=== PATIENT | female | born 1985 | race Caucasian/White ===

== ENCOUNTER 2018-05-04 10:56 | Emergency (ER) | payer OTHER ==
[~2018-05-04] VITALS: Ht 167.6 cm; Wt 83.0 kg
[2018-05-04 11:04] VITALS: BP 122/89
--- NOTE | 2018-05-04 11:10 | NUR ---
PT AMBULATES TO BED 10
--- NOTE | 2018-05-04 11:15 | NUR ---
BIB SELF C/O AB PAIN X 2 DAYS, +N/V/D, AFRIBILE AT THIS TIME. SKIN IS PINK/WARM/DRY; AAOX4 WITH EVEN AND STEADY GAIT; LUNGS CLEAR BL; HR EVEN AND REGULAR; PT DENIES ANY FEVER, CP, SOB, OR COUGH AT THIS TIME; PATIENT STATES PAIN OF 6/10 AT THIS TIME; VSS; PATIENT POSITIONED FOR COMFORT; HOB ELEVATED; BEDRAILS UP X2; BED DOWN. ER MD MADE AWARE OF PT STATUS.
[2018-05-04] MEDS ORDERED: LOPERAMIDE 2 MG CAP PO ONE (11:30)
[2018-05-04] MEDS ORDERED: ONDANSETRON 4 MG ODT PO ONE (11:30)
[2018-05-04] MEDS ORDERED: IBUPROFEN 600 MG TAB PO ONE (11:30)
[2018-05-04 11:47] VITALS: BP 122/89
--- NOTE | 2018-05-04 11:48 | NUR ---
Patient discharged with v/s stable. Written and verbal after care instructions given and explained. Patient alert, oriented and verbalized understanding of instructions. Ambulatory with steady gait. All questions addressed prior to discharge. ID band removed. Patient advised to follow up with PMD. Rx of Bentyl, immodium, phenergan given. Patient educated on indication of medication including possible reaction and side effects. Opportunity to ask questions provided and answered.
== END 2018-05-04 11:45 | disposition home or self-care (01) ==
LOC: MED 10:56
DX: A08.4 Viral intestinal infection, unspecified (principal); Z88.0 Allergy status to penicillin; Z88.8 Allergy status to other drugs, medicaments and biological substances
CPT/HCPCS: 99284; Q0162

== ENCOUNTER 2019-01-12 10:03 | Emergency (ER) | payer OTHER ==
[~2019-01-12] VITALS: Ht 165.1 cm; Wt 85.5 kg
[2019-01-12 10:08] VITALS: BP 120/65
--- NOTE | 2019-01-12 10:12 | NUR ---
Patient ambulated to bed 1. RN evaluating patient at bedside.
--- NOTE | 2019-01-12 10:30 | NUR ---
PT PRESENTS TO ED WITH C/O DIZZINESS X TODAY. PT REPORTS FEELING IF SHE'S "SPINNING". +NAUSEA, DENIES VOMITING EPISODES. DENIES ANY RECENT ILLNESS. PLACED IN GOWN; CONNECTED TO MONITOR. VSS. COY TO EVALUATE PT.
[2019-01-12] MEDS ORDERED: NACL 0.9% 1,000 ML IV SCH (11:06)
[2019-01-12] MEDS ORDERED: MECLIZINE 25 MG TAB PO ONE (11:10)
[2019-01-12] MEDS ORDERED: ONDANSETRON 4 MG ODT PO ONE (11:10)
[2019-01-12] MEDS ORDERED: FAMOTIDINE 20 MG TAB PO ONE (11:10)
[2019-01-12 11:35] LABS: BASOPHILS % (AUTO) 0.6 % (0.0-2.0); EOSINOPHILS # (AUTO) 0.2 K/uL (0-0.4); EOSINOPHILS % (AUTO) 3.4 % (0.0-4.0); HEMOGLOBIN 9.1 g/dL (12.0-16.0); LYMPHOCYTES # (AUTO) 2.4 K/uL (2.5-16.5); LYMPHOCYTES % (AUTO) 34.5 % (20.5-51.1); MEAN CORPUSCULAR HEMOGLOBIN 19 pg (27-31); MEAN CORPUSCULAR HGB CONC 30 g/dL (33-37); MEAN CORPUSCULAR VOLUME 63.4 fL (80-94); MONOCYTES # (AUTO) 0.6 K/uL (0.8-1.0); MONOCYTES % (AUTO) 8.2 % (1.7-9.3); NEUTROPHILS # (AUTO) 3.7 K/uL (1.8-7.7); NEUTROPHILS % (AUTO) 53.3 % (42.2-75.2); PLATELET COUNT (AUTO) 388 K/uL (140-450); RED BLOOD CELL COUNT(AUTO) 4.74 MIL/uL (4.20-5.40); RED CELL DISTRIBUTION WIDTH 18.5 % (11.6-13.7); WHITE BLOOD COUNT (AUTO) 6.9 K/uL (4.8-10.8)
[2019-01-12 11:50] LABS: ALBUMIN 3.3 g/dL (3.4-5.0); ANION GAP 12.5 (8-16); CARBON DIOXIDE 26.3 mmol/L (21-32); CREATININE 0.7 mg/dL (0.6-1.3); POTASSIUM 3.8 mmol/L (3.5-5.1); TOTAL BILIRUBIN 0.2 mg/dL (0.0-1.0)
[2019-01-12 12:56] LABS: APPEARANCE,URINE SL CLOUDY (CLEAR); BILIRUBIN,URINE NEGATIVE (NEGATIVE); BLOOD, URINE NEGATIVE (NEGATIVE); LEUKOCYTE ESTERASE ,URINE 3+ (NEGATIVE); NITRITE, URINE NEGATIVE (NEGATIVE); PH,URINE 5.5 (5.0-9.0); UGLUCOSE NEGATIVE (NEGATIVE)
[2019-01-12] MEDS ORDERED: LEVOFLOXACIN 500 MG TAB PO ONE (13:10)
[2019-01-12 13:38] LABS: RBC,URINE NONE SEEN /HPF (0-5)
[2019-01-12 13:40] LABS: COLOR,URINE YELLOW (YELLOW)
--- NOTE | 2019-01-12 13:51 | NUR ---
Patient discharged with v/s stable. Written and verbal after care instructions given and explained. Patient alert, oriented and verbalized understanding of instructions. Ambulatory with steady gait. All questions addressed prior to discharge. ID band removed. Patient advised to follow up with PMD. Rx of ANTIVERT 25MG AND LEVAQUIN 250MG given. Patient educated on indication of medication including possible reaction and side effects. Opportunity to ask questions provided and answered.
[2019-01-12 13:52] VITALS: BP 119/82
== END 2019-01-12 13:51 | disposition home or self-care (01) ==
LOC: MED 10:03
DX: N39.0 Urinary tract infection, site not specified (principal); Z88.0 Allergy status to penicillin; Z88.8 Allergy status to other drugs, medicaments and biological substances
CPT/HCPCS: 36415; 80053; 81001; 82150; 83690; 84703; 85025; 86886; 86900; 86901; 87086; 96360; 96361; 99284; J7030; J8597; Q0162

== ENCOUNTER 2019-03-16 08:18 | Emergency (ER) | payer OTHER ==
[~2019-03-16] VITALS: Ht 167.6 cm; Wt 81.6 kg
[2019-03-16 08:24] VITALS: BP 100/76
[2019-03-16 09:13] VITALS: BP 100/76
== END 2019-03-16 09:12 | disposition home or self-care (01) ==
LOC: MED 08:18
DX: S50.861A Insect bite (nonvenomous) of right forearm, initial encounter (principal); S50.361A Insect bite (nonvenomous) of right elbow, initial encounter; R21 Rash and other nonspecific skin eruption; L29.9 Pruritus, unspecified; Z88.0 Allergy status to penicillin; Z88.8 Allergy status to other drugs, medicaments and biological substances; W57.XXXA Bitten or stung by nonvenomous insect and other nonvenomous arthropods, initial encounter; Y93.89 Activity, other specified; Y92.89 Other specified places as the place of occurrence of the external cause; Y99.8 Other external cause status
CPT/HCPCS: 99283

== ENCOUNTER 2019-03-16 21:58 | Emergency (ER) | payer OTHER ==
[~2019-03-16] VITALS: Ht 165.1 cm; Wt 88.5 kg
[2019-03-16 22:12] VITALS: BP 119/76
--- NOTE | 2019-03-16 22:32 | NUR ---
PT AMBULATED TO BED #6
--- NOTE | 2019-03-16 22:38 | NUR ---
PT CAME TO ER FOR BUG BITE ON RIGHT FOREARM SINCE TODAY. PT WAS SEEN HERE 03/16/19 AROUND 0830 FOR BUG BITE AND WAS PRESCRIBED ANTIBIOTICS AND BENADRYL. PT C/O MEDICATIONS DID NOT WORK AND DEVELOPED A FEVER. PT TOOK TYLENOL AT 1700 AND MOTRIN AT 2000 FOR FEVER. PT CURRENTLY AFEBRILE. PAIN LEVEL 7/10, SHOOTING FROM RIGHT FINGERS TO RIGHT SHOULDER BLADE. AREA HAS REDNESS AND SWELLING. ALLERGIES: PENICILLIN AND IODINE. NO MED HX. SAFETY MEASURES IN PLACE. WAITING FOR ERMD TO EVALUATE PT.
[2019-03-17] MEDS ORDERED: KETOROLAC 30 MG/ML VIAL IM ONE (00:05)
[2019-03-17 00:44] VITALS: BP 136/59
--- NOTE | 2019-03-17 00:44 | NUR ---
Patient discharged with v/s stable. Written and verbal after care instructions given and explained. Educated pt to wash skin with soap and water, avoid scratching area. Patient alert, oriented and verbalized understanding of instructions. Ambulatory with steady gait. All questions addressed prior to discharge. ID band removed. Patient advised to follow up with PMD. Rx of nAPROSYN, AND hYDROCORTISONE CREAM was given. Patient educated on indication of medication including possible reaction and side effects. Opportunity to ask questions provided and answered.
== END 2019-03-17 00:44 | disposition home or self-care (01) ==
LOC: MED 21:58
DX: T63.301A Toxic effect of unspecified spider venom, accidental (unintentional), initial encounter (principal); M79.631 Pain in right forearm; L08.9 Local infection of the skin and subcutaneous tissue, unspecified; Z88.0 Allergy status to penicillin; Z88.8 Allergy status to other drugs, medicaments and biological substances; Y92.89 Other specified places as the place of occurrence of the external cause
CPT/HCPCS: 96372; 99283; J1885

== ENCOUNTER 2019-08-11 22:33 | Emergency (ER) | payer OTHER ==
[~2019-08-11] VITALS: Ht 165.1 cm; Wt 88.0 kg
[2019-08-11 22:40] VITALS: BP 142/87
--- NOTE | 2019-08-11 22:51 | NUR ---
FLU SWAB COLLECTED. PT AMBULATED TO LOBBY TO A/W BED
--- NOTE | 2019-08-11 23:27 | NUR ---
PT AMBULATED TO BED 12
--- NOTE | 2019-08-11 23:35 | NUR ---
PT C/O DIZZY, BODY ACHE X EARLIER TODAY. PT SAYS SHES ALSO NAUSEATED, BLURRY VISION, UNSTEADY GAIT. VSS. TOOK IBUPROFEN AT 2214 TODAY. LUNG SOUNDS CLEAR ALL THROUGHOUT. A & OX4. CHANGE OF APPETTITE. ALLERGIES: IODINE, PENICILLIN. PMH: VERTIGO
--- NOTE | 2019-08-11 23:37 | NUR ---
COY WEI AT BEDSIDE TO EVAL PT.
--- NOTE | 2019-08-11 23:37 | NUR ---
Dr. Sharp examining patient.
[2019-08-12 00:21] VITALS: BP 142/87
== END 2019-08-12 00:21 | disposition home or self-care (01) ==
LOC: MED 22:33
DX: R50.9 Fever, unspecified (principal); R42 Dizziness and giddiness; H92.03 Otalgia, bilateral; R63.0 Anorexia; Z98.890 Other specified postprocedural states; Z88.0 Allergy status to penicillin; Z88.8 Allergy status to other drugs, medicaments and biological substances
CPT/HCPCS: 87804; 99283

== ENCOUNTER 2019-10-29 21:26 | Emergency (ER) | payer OTHER ==
[~2019-10-29] VITALS: Ht 167.6 cm; Wt 81.6 kg
[2019-10-29 21:34] VITALS: BP 132/79
[2019-10-29] MEDS ORDERED: NACL 0.9% 1,000 ML IV ONE (22:07)
[2019-10-29] MEDS ORDERED: MORPHINE SULFATE 4 MG/ML SYR IVP ONE (22:10)
[2019-10-29] MEDS ORDERED: KETOROLAC 30 MG/ML VIAL IVP ONE (22:10)
[2019-10-29] MEDS ORDERED: ONDANSETRON 4 MG/2 ML VIAL IVP ONE (22:10)
[2019-10-29 22:39] LABS: BASOPHILS # (AUTO) 0.1 K/uL (0.00-0.22); BASOPHILS % (AUTO) 0.6 % (0.0-2.0); EOSINOPHILS # (AUTO) 0.4 K/uL (0-0.4); EOSINOPHILS % (AUTO) 3.7 % (0.0-4.0); HEMATOCRIT 34.5 % (36-48); HEMOGLOBIN 10.8 g/dL (12.0-16.0); LYMPHOCYTES # (AUTO) 3.2 K/uL (2.5-16.5); LYMPHOCYTES % (AUTO) 32.7 % (20.5-51.1); MEAN CORPUSCULAR HEMOGLOBIN 22 pg (27-31); MEAN CORPUSCULAR HGB CONC 31 g/dL (33-37); MEAN CORPUSCULAR VOLUME 69.1 fL (80-94); MONOCYTES # (AUTO) 0.6 K/uL (0.8-1.0); MONOCYTES % (AUTO) 6.5 % (1.7-9.3); NEUTROPHILS # (AUTO) 5.6 K/uL (1.8-7.7); NEUTROPHILS % (AUTO) 56.5 % (42.2-75.2); PLATELET COUNT (AUTO) 340 K/uL (140-450); RED BLOOD CELL COUNT(AUTO) 4.99 MIL/uL (4.20-5.40); RED CELL DISTRIBUTION WIDTH 19.8 % (11.6-13.7); WHITE BLOOD COUNT (AUTO) 9.9 K/uL (4.8-10.8)
[2019-10-29 22:50] LABS: APPEARANCE,URINE CLEAR (CLEAR); BILIRUBIN,URINE NEGATIVE (NEGATIVE); BLOOD, URINE NEGATIVE (NEGATIVE); COLOR,URINE YELLOW (YELLOW); LEUKOCYTE ESTERASE ,URINE TRACE (NEGATIVE); NITRITE, URINE NEGATIVE (NEGATIVE); UGLUCOSE NEGATIVE (NEGATIVE)
[2019-10-29 23:03] LABS: RBC,URINE 0-5 /HPF (0-5)
[2019-10-29 23:04] LABS: ALBUMIN 3.4 g/dL (3.4-5.0); ANION GAP 10.9 (8-16); CARBON DIOXIDE 27.8 mmol/L (21-32); CREATININE 0.8 mg/dL (0.6-1.3); POTASSIUM 3.7 mmol/L (3.5-5.1); TOTAL BILIRUBIN 0.1 mg/dL (0.0-1.0)
[2019-10-29 23:10] LABS: BARBITURATE, URINE NEGATIVE ng/ml (NEG <=200); BENZODIAZEPINE, URINE NEGATIVE ng/mL (NEG <=200); CANNABINOID, URINE NEGATIVE ng/mL (NEG <=50); COCAINE, URINE NEGATIVE ng/mL (NEG <=300); OPIATE, URINE NEGATIVE ng/mL (NEG <=2000); PHENCYCLIDINE SCREEN,URINE NEGATIVE ng/mL (NEG <=25)
[2019-10-30 02:03] VITALS: BP 121/72
== END 2019-10-30 02:04 | disposition home or self-care (01) ==
LOC: MED 21:26
DX: N39.0 Urinary tract infection, site not specified (principal); N20.0 Calculus of kidney; Z88.0 Allergy status to penicillin; Z88.8 Allergy status to other drugs, medicaments and biological substances
CPT/HCPCS: 36415; 74176; 76856; 80053; 80305; 81001; 81025; 83690; 85025; 87086; 93976; 96361; 96374; 96375; 99285; J1885; J2270; J2405; J7030; Q0092

== ENCOUNTER 2020-01-19 17:50 | Emergency (ER) | payer OTHER ==
[~2020-01-19] VITALS: Ht 165.1 cm; Wt 83.0 kg
[2020-01-19 17:57] VITALS: BP 114/79
--- NOTE | 2020-01-19 18:02 | NUR ---
WAIT AT LOBBY. HANDED ON URINE CUP.
--- NOTE | 2020-01-19 18:55 | NUR ---
PT TAKEN TO BED 2.
[2020-01-19 19:21] LABS: BASOPHILS % (AUTO) 0.4 % (0.0-2.0); EOSINOPHILS # (AUTO) 0.3 K/uL (0-0.4); EOSINOPHILS % (AUTO) 3.8 % (0.0-4.0); HEMATOCRIT 36.2 % (36-48); HEMOGLOBIN 11.1 g/dL (12.0-16.0); LYMPHOCYTES # (AUTO) 2.1 K/uL (2.5-16.5); LYMPHOCYTES % (AUTO) 25.2 % (20.5-51.1); MEAN CORPUSCULAR HEMOGLOBIN 23 pg (27-31); MEAN CORPUSCULAR HGB CONC 31 g/dL (33-37); MEAN CORPUSCULAR VOLUME 73.6 fL (80-94); MONOCYTES # (AUTO) 0.6 K/uL (0.8-1.0); MONOCYTES % (AUTO) 7.7 % (1.7-9.3); NEUTROPHILS # (AUTO) 5.2 K/uL (1.8-7.7); NEUTROPHILS % (AUTO) 62.9 % (42.2-75.2); PLATELET COUNT (AUTO) 327 K/uL (140-450); RED BLOOD CELL COUNT(AUTO) 4.92 MIL/uL (4.20-5.40); RED CELL DISTRIBUTION WIDTH 18.3 % (11.6-13.7); WHITE BLOOD COUNT (AUTO) 8.2 K/uL (4.8-10.8)
[2020-01-19 19:42] LABS: PROTHROMBIN TIME 9.7 secs (10.8-13.4)
--- NOTE | 2020-01-19 19:45 | NUR ---
PT STARTED HAVING VAGINAL SPOTTING X 2 DAYS, STATES SMALL AMOUNT, ALSO HAVING WATERY DISCHARGE WITH AN UNPLEASANT ODOR. ALSO HAVING BURNING WITH URINATION. HAVING CONSTANT LOWER ABD PAIN 01/05 AND PAIUN RADIATES INTO LOWER BACK. LMP 12/31/19 DENIES . PT WAS UNABLE TO GIVE UA, PROVIDED PT WITH WATER ADVISED WE NEED UA. BED IN LOWEST POSITION AND SIDE RAIL UP X 1. ALLERGY - PCN NO MED HX MEDS - BC PILLS
--- NOTE | 2020-01-19 19:46 | NUR ---
PELVIC TRAY SRT UP AT BEDSIDE
[2020-01-19 20:10] LABS: ANION GAP 13.9 (8-16); CARBON DIOXIDE 25.6 mmol/L (21-32); CREATININE 0.8 mg/dL (0.6-1.3); POTASSIUM 4.5 mmol/L (3.5-5.1)
[2020-01-19 20:11] LABS: ALBUMIN 3.3 g/dL (3.4-5.0); TOTAL BILIRUBIN 0.1 mg/dL (0.0-1.0)
--- NOTE | 2020-01-19 20:13 | NUR ---
ASSISTED DR. TONY WITH A PELVIC EXAM.
--- NOTE | 2020-01-19 20:13 | NUR ---
UA OBTAINED AND SENT OVER TO LAB.
[2020-01-19] MEDS ORDERED: IBUPROFEN 800 MG TAB PO ONE (20:15)
--- NOTE | 2020-01-19 20:42 | NUR ---
PT TO CT VIA [facility]
[2020-01-19 20:43] LABS: APPEARANCE,URINE CLEAR (CLEAR); BILIRUBIN,URINE NEGATIVE (NEGATIVE); BLOOD, URINE NEGATIVE (NEGATIVE); COLOR,URINE YELLOW (YELLOW); LEUKOCYTE ESTERASE ,URINE 1+ (NEGATIVE); NITRITE, URINE NEGATIVE (NEGATIVE); UGLUCOSE NEGATIVE (NEGATIVE)
[2020-01-19 20:51] LABS: RBC,URINE 0-5 /HPF (0-5); WBC,URINE 16-25 (MOD) /HPF (0-5)
--- NOTE | 2020-01-19 21:28 | NUR ---
PT STATES PAIN IS NOW 4/10 AFTER MED. RESTING QUIETLY AT THIS TIME.
[2020-01-19] MEDS ORDERED: CIPROFLOXACIN 250 MG TAB PO ONE (22:40)
--- NOTE | 2020-01-19 23:15 | NUR ---
MD TONY IN PT ROOM
[2020-01-19] MEDS ORDERED: HYDROcodone/APAP 5/325 MG 1 TAB TAB ONE (23:32)
[2020-01-19] MEDS ORDERED: HYDROcodone/APAP 5/325 MG 1 TAB TAB PO ONE (23:35)
--- NOTE | 2020-01-19 23:44 | NUR ---
Patient discharged with v/s stable. Written and verbal after care instructions given and explained. Patient alert, oriented and verbalized understanding of instructions. Ambulatory with steady gait. All questions addressed prior to discharge. ID band removed. Patient advised to follow up with PMD. Rx of TRAMADOL, MOTRIN, AND CIPRO given. Patient educated on indication of medication including possible reaction and side effects. Opportunity to ask questions provided and answered.
[2020-01-19 23:45] VITALS: BP 116/78
[2020-01-22 08:12] LABS: CHLAMYDIA TRACHOMATIS AMP DNA Negative (Negative)
== END 2020-01-19 23:44 | disposition home or self-care (01) ==
LOC: MED 17:50
DX: N39.0 Urinary tract infection, site not specified (principal); D25.9 Leiomyoma of uterus, unspecified; N88.8 Other specified noninflammatory disorders of cervix uteri; Z88.0 Allergy status to penicillin; Z88.8 Allergy status to other drugs, medicaments and biological substances
CPT/HCPCS: 36415; 74176; 76856; 80053; 81001; 84702; 85025; 85610; 85730; 87086; 87210; 87491; 99285; Q0092

== ENCOUNTER 2020-05-05 13:43 | Emergency (ER) | payer OTHER ==
[~2020-05-05] VITALS: Ht 165.1 cm; Wt 80.8 kg
[2020-05-05 13:47] VITALS: BP 117/67
--- NOTE | 2020-05-05 13:50 | NUR ---
Pt taken to bed 2.
--- NOTE | 2020-05-05 13:59 | NUR ---
PT HELPED INTO HOSPITAL GOWN AND AMBULATED TO RESTROOM TO PROVIDE URINE SAMPLE
--- NOTE | 2020-05-05 14:00 | NUR ---
34/F C/O N/V/D & GENERALIZED ABDOMINAL PAIN X 2 DAYS. PT FINISHED LAST CHEMO & EXTERNAL RADIATION 4 DAYS AGO AND BRACHYTHERAPY 2 DAYS AGO. HAS HAD CHEMO BEFORE BUT STATES THE BRACHYTHERAPY 2 DAYS AGO IS HER FIRST TIME. PT STATES N/V STARTED FIRST AND BELIEVES THAT IS WHAT CAUSED THE ABD PAIN. PT CONNECTED TO BEDSIDE MONITOR. MED HX: CERVICAL CANCER STAGE II Addendum: 05/05/20 at 1412 by SHUBHAM HAS PRESCRIPTIONS FOR ZOFRAN AND COMPAZINE WHICH PT IS TAKING AT HOME TO NO RELIEF FOR N/V Addendum: 05/05/20 at 1443 by SHUBHAM N/V X 2 DAYS, DIARRHEA X TODAY
--- NOTE | 2020-05-05 14:12 | NUR ---
DR. GROVES EVALUATING PT AT BEDSIDE
[2020-05-05] MEDS ORDERED: METOCLOPRAMIDE 10 MG/2 ML INJ VIAL IVP ONE (14:15)
[2020-05-05] MEDS ORDERED: diphenhydrAMINE 50 MG/ML VIAL IVP ONE (14:15)
[2020-05-05] MEDS ORDERED: NACL 0.9% 1,000 ML IV ONE (14:15)
[2020-05-05 14:43] LABS: BASOPHILS % (AUTO) 0.5 % (0.0-2.0); EOSINOPHILS % (AUTO) 1.3 % (0.0-4.0); HEMATOCRIT 37.7 % (36-48); HEMOGLOBIN 12.7 g/dL (12.0-16.0); LYMPHOCYTES # (AUTO) 0.4 K/uL (2.5-16.5); LYMPHOCYTES % (AUTO) 12.3 % (20.5-51.1); MEAN CORPUSCULAR HEMOGLOBIN 28 pg (27-31); MEAN CORPUSCULAR HGB CONC 34 g/dL (33-37); MONOCYTES # (AUTO) 0.4 K/uL (0.8-1.0); MONOCYTES % (AUTO) 15.7 % (1.7-9.3); NEUTROPHILS % (AUTO) 70.2 % (42.2-75.2); PLATELET COUNT (AUTO) 281 K/uL (140-450); RED BLOOD CELL COUNT(AUTO) 4.59 MIL/uL (4.20-5.40); RED CELL DISTRIBUTION WIDTH 33.1 % (11.6-13.7); WHITE BLOOD COUNT (AUTO) 2.8 K/uL (4.8-10.8)
[2020-05-05 14:44] LABS: APPEARANCE,URINE CLEAR (CLEAR); BILIRUBIN,URINE NEGATIVE (NEGATIVE); BLOOD, URINE 1+ (NEGATIVE); COLOR,URINE YELLOW (YELLOW); LEUKOCYTE ESTERASE ,URINE TRACE (NEGATIVE); NITRITE, URINE NEGATIVE (NEGATIVE); UGLUCOSE NEGATIVE (NEGATIVE)
[2020-05-05 14:59] LABS: RBC,URINE 11-20 (MOD) /HPF (0-5)
[2020-05-05 15:01] LABS: ALBUMIN 3.5 g/dL (3.4-5.0); ANION GAP 14.8 (8-16); CARBON DIOXIDE 25.6 mmol/L (21-32); CREATININE 0.7 mg/dL (0.6-1.3); POTASSIUM 3.4 mmol/L (3.5-5.1); TOTAL BILIRUBIN 0.3 mg/dL (0.0-1.0)
--- NOTE | 2020-05-05 15:34 | NUR ---
PT STATES SHE FEELS "BETTER"; DENIES NAUSEA AT THIS TIME.
--- NOTE | 2020-05-05 15:41 | NUR ---
DR. GROVES SPEAKING WITH PT AT BEDSIDE
[2020-05-05 16:10] VITALS: BP 120/80
--- NOTE | 2020-05-05 16:10 | NUR ---
Patient discharged with v/s stable. Written and verbal after care instructions given and explained. Patient alert, oriented and verbalized understanding of instructions. Ambulatory with steady gait. WILL BE PICKED UP FROM ER BY SISTER. All questions addressed prior to discharge. ID band removed. Patient advised to follow up with PMD. Rx of REGLAN given. Patient educated on indication of medication including possible reaction and side effects. Opportunity to ask questions provided and answered.
== END 2020-05-05 16:10 | disposition home or self-care (01) ==
LOC: MED 13:43
DX: R11.2 Nausea with vomiting, unspecified (principal); Z88.0 Allergy status to penicillin; Z88.8 Allergy status to other drugs, medicaments and biological substances; Z85.9 Personal history of malignant neoplasm, unspecified; Z85.41 Personal history of malignant neoplasm of cervix uteri
CPT/HCPCS: 36415; 80053; 81001; 81025; 83690; 85025; 87086; 96361; 96374; 96375; 99284; J1200; J2765; J7030

== ENCOUNTER 2020-07-05 13:52 | Emergency (ER) | payer OTHER ==
[~2020-07-05] VITALS: Ht 172.7 cm; Wt 85.7 kg
[2020-07-05 14:27] VITALS: BP 137/65
--- NOTE | 2020-07-05 15:00 | NUR ---
PT SEEN AND EVALUATED BY MARIELY MCGILL
[2020-07-05 15:19] VITALS: BP 137/65
--- NOTE | 2020-07-05 15:19 | NUR ---
Patient discharged with v/s stable. Written and verbal after care instructions given and explained. Patient alert, oriented and verbalized understanding of instructions. Ambulatory with steady gait. All questions addressed prior to discharge. ID band removed. Patient advised to follow up with PMD. Rx of ROBITUSSIN, IBUPROFEN, ACETAMINOPHEN given. Patient educated on indication of medication including possible reaction and side effects. Opportunity to ask questions provided and answered.
== END 2020-07-05 15:19 | disposition home or self-care (01) ==
LOC: MED 13:52
DX: U07.1 COVID-19 (principal); Z88.0 Allergy status to penicillin; Z88.8 Allergy status to other drugs, medicaments and biological substances; Z85.41 Personal history of malignant neoplasm of cervix uteri
CPT/HCPCS: 99283; U0003

== ENCOUNTER 2020-07-08 19:56 | Emergency (ER) | payer OTHER ==
[~2020-07-08] VITALS: Ht 165.1 cm; Wt 82.6 kg
[2020-07-08 20:00] VITALS: BP 108/90
--- NOTE | 2020-07-08 20:00 | NUR ---
TO TENT AMBULATORY
--- NOTE | 2020-07-08 20:30 | NUR ---
SEEN AND EXAMINED BY COY WITH ORDERS, CARRIED OUT
[2020-07-08] MEDS ORDERED: ACETAMINOPHEN EXTRA STRENGTH 500 MG TAB PO ONE (20:35)
[2020-07-08] MEDS ORDERED: ALBUTEROL HFA MDI 90 MCG/ACTUATION 8 GM INH ONE (20:35)
[2020-07-08] MEDS ORDERED: IBUPROFEN 800 MG TAB PO ONE (20:35)
[2020-07-08] MEDS ORDERED: levoFLOXacin 750 MG TAB PO ONE (20:35)
[2020-07-08 21:39] LABS: BASOPHILS % (AUTO) 0.4 % (0.0-2.0); EOSINOPHILS % (AUTO) 0.4 % (0.0-4.0); HEMATOCRIT 39.6 % (36-48); HEMOGLOBIN 13.2 g/dL (12.0-16.0); LYMPHOCYTES # (AUTO) 0.6 K/uL (2.5-16.5); LYMPHOCYTES % (AUTO) 22.1 % (20.5-51.1); MEAN CORPUSCULAR HEMOGLOBIN 30 pg (27-31); MEAN CORPUSCULAR HGB CONC 34 g/dL (33-37); MEAN CORPUSCULAR VOLUME 89.8 fL (80-94); MONOCYTES # (AUTO) 0.4 K/uL (0.8-1.0); MONOCYTES % (AUTO) 16.1 % (1.7-9.3); NEUTROPHILS # (AUTO) 1.7 K/uL (1.8-7.7); PLATELET COUNT (AUTO) 194 K/uL (140-450); RED BLOOD CELL COUNT(AUTO) 4.41 MIL/uL (4.20-5.40); RED CELL DISTRIBUTION WIDTH 24.1 % (11.6-13.7); WHITE BLOOD COUNT (AUTO) 2.7 K/uL (4.8-10.8)
[2020-07-08 22:02] LABS: ALBUMIN 3.9 g/dL (3.4-5.0); ANION GAP 13.4 (8-16); CARBON DIOXIDE 25.3 mmol/L (21-32); CREATININE 0.7 mg/dL (0.6-1.3); POTASSIUM 3.7 mmol/L (3.5-5.1); TOTAL BILIRUBIN 0.3 mg/dL (0.0-1.0)
[2020-07-08] MEDS ORDERED: levoFLOXacin 750 MG TAB ONE (22:14)
[2020-07-08] MEDS ORDERED: IBUPROFEN 800 MG TAB ONE (22:15)
[2020-07-08] MEDS ORDERED: ACETAMINOPHEN EXTRA STRENGTH 500 MG TAB ONE (22:16)
--- NOTE | 2020-07-08 22:20 | NUR ---
SWAB DONE SENT TO LAB
--- NOTE | 2020-07-08 22:25 | NUR ---
MEDICATED PER ERMDS ORDER, TOLERATED WELL
[2020-07-08 22:45] VITALS: BP 115/79
--- NOTE | 2020-07-08 22:45 | NUR ---
Patient discharged with v/s stable. Written and verbal after care instructions given and explained. Patient alert, oriented and verbalized understanding of instructions. Ambulatory with steady gait. All questions addressed prior to discharge. ID band removed. Patient advised to follow up with PMD. Rx of VENTOLIN, LEVAQUIN 750 MG given. Patient educated on indication of medication including possible reaction and side effects. Opportunity to ask questions provided and answered.
== END 2020-07-08 22:45 | disposition home or self-care (01) ==
LOC: MED 19:56
DX: U07.1 COVID-19 (principal); Z85.41 Personal history of malignant neoplasm of cervix uteri; Z88.0 Allergy status to penicillin; Z88.8 Allergy status to other drugs, medicaments and biological substances
CPT/HCPCS: 36415; 71045; 80053; 83605; 85025; 85379; 87040; 87804; 99284; J3535

== ENCOUNTER 2021-01-02 02:25 | Emergency (ER) | payer OTHER ==
[~2021-01-02] VITALS: Ht 165.1 cm; Wt 88.5 kg
[2021-01-02 02:47] VITALS: BP 126/83
[2021-01-02] MEDS ORDERED: ONDANSETRON 4 MG ODT PO ONE (03:40)
[2021-01-02] MEDS ORDERED: PANTOPRAZOLE 40 MG TABEC PO ONE (03:45)
[2021-01-02] MEDS ORDERED: PROCHLORPERAZINE 10 MG/2 ML VIAL IM ONE (04:00)
[2021-01-02 05:00] VITALS: BP 126/83
[2021-01-02 05:43] LABS: BILIRUBIN,URINE NEGATIVE (NEGATIVE); BLOOD, URINE NEGATIVE (NEGATIVE); COLOR,URINE YELLOW (YELLOW); LEUKOCYTE ESTERASE ,URINE 1+ (NEGATIVE); NITRITE, URINE NEGATIVE (NEGATIVE); PH,URINE 8.5 (5.0-9.0); UGLUCOSE NEGATIVE (NEGATIVE)
[2021-01-02 05:56] LABS: RBC,URINE 0-5 /HPF (0-5)
[2021-01-02 06:00] LABS: APPEARANCE,URINE HAZY (CLEAR)
== END 2021-01-02 05:00 | disposition home or self-care (01) ==
LOC: MED 02:25
DX: N39.0 Urinary tract infection, site not specified (principal); R11.2 Nausea with vomiting, unspecified; Z88.0 Allergy status to penicillin; Z88.6 Allergy status to analgesic agent; Z85.41 Personal history of malignant neoplasm of cervix uteri
CPT/HCPCS: 81001; 81025; 87086; 96372; 99283; J0780; Q0162

== ENCOUNTER 2021-05-16 21:48 | Emergency (ER) | payer OTHER ==
--- NOTE | 2021-05-16 22:38 | NUR ---
PATIENT ELOPED FROM FACILITY. DISCHARGE INSTRUCTIONS NOT GIVEN TO PATIENT. DR. STEPHENS NOTIFIED.
== END 2021-05-16 22:38 | disposition left against medical advice (07) ==
LOC: MED 21:48
DX: Z53.21 Procedure and treatment not carried out due to patient leaving prior to being seen by health care provider (principal)

== ENCOUNTER 2021-09-13 12:14 | Emergency (ER) | payer OTHER ==
[~2021-09-13] VITALS: Ht 167.6 cm; Wt 90.3 kg
[2021-09-13 12:33] VITALS: BP 135/64
--- NOTE | 2021-09-13 12:39 | NUR ---
Pt ambulated to lobby for next available bed.
[2021-09-13] MEDS ORDERED: CYCLOBENZAPRINE 10 MG TAB PO ONE (12:55)
[2021-09-13] MEDS ORDERED: KETOROLAC 30 MG/ML VIAL IM ONE (12:55)
[2021-09-13] MEDS ORDERED: CYCL-711 PO ×2 (13:37→13:55)
[2021-09-13] MEDS ORDERED: NAPR-54 PO ×2 (13:37→13:55)
[2021-09-13 13:55] VITALS: BP 135/64
--- NOTE | 2021-09-13 13:55 | NUR ---
Patient discharged with v/s stable. Written and verbal after care instructions given and explained. Patient alert, oriented and verbalized understanding of instructions. Ambulatory with steady gait. All questions addressed prior to discharge. ID band removed. Patient advised to follow up with PMD. Rx of FLEXERIL AND NAPROXEN given. Patient educated on indication of medication including possible reaction and side effects. Opportunity to ask questions provided and answered.
== END 2021-09-13 13:55 | disposition home or self-care (01) ==
LOC: MED 12:14
DX: S29.012A Strain of muscle and tendon of back wall of thorax, initial encounter (principal); Z79.899 Other long term (current) drug therapy; Z88.0 Allergy status to penicillin; Z88.8 Allergy status to other drugs, medicaments and biological substances; Z85.41 Personal history of malignant neoplasm of cervix uteri; Z90.710 Acquired absence of both cervix and uterus; X58.XXXA Exposure to other specified factors, initial encounter; Y93.89 Activity, other specified; Y92.89 Other specified places as the place of occurrence of the external cause; Y99.8 Other external cause status
CPT/HCPCS: 71045; 96372; 99283; J1885

== ENCOUNTER 2022-04-22 08:05 | Emergency (ER) | payer OTHER ==
[~2022-04-22] VITALS: Ht 165.1 cm; Wt 89.8 kg
[~2022-04-22 08:05] MED LIST: CYCL-711 PO; NAPR-54 PO
--- NOTE | 2022-04-22 08:08 | NUR ---
DE[facility] ALS TO ER BED 4
[2022-04-22 08:09] VITALS: BP 125/89
--- NOTE | 2022-04-22 08:15 | NUR ---
36 y/o F BIBA from home c/o chest pain since last night. Patient A&Ox4, ambulatory, states sternal chest pain 5/10, pressure/constant, radiating to mid back. Pt states episode of nausea, dizziness and "seeing black dots" at 0730 this morning. ASA 324 given by EMS. Pt reports similar symptoms in the past with negative work-up. Patient denies SOB, cough, abdominal pain, vomiting, diarrhea, headache, blurry vision, urinary symptoms. Pt placed onto patient monitor HR 57, SpO2 97% on room air. Bed locked in lowest position, side rails x 1. PMH: cervical cancer 2020, bipolar d/o, PTSD, panic attacks Meds: Denies Allergies: PCN, iodine Sx: hysterectomy s/p radiation therapy
--- NOTE | 2022-04-22 08:15 | NUR ---
Note undone in EDM - 04/22/22 at 0832 by MNURBMD 36 y/o F BIBA from home c/o chest pain since last night. Patient A&Ox4, ambulatory, states sternal chest pain 5/10, pressure/constant, radiating to mid back. Pt states episode of nausea, dizziness and "seeing black dots" at 0730 this morning. ASA 324 given by EMS. Pt reports similar symptoms in the past with negative work-up. Patient denies SOB, cough, abdominal pain, vomiting, diarrhea, headache, blurry vision, urinary symptoms. Pt placed onto nicker HR 57, SpO2 97% on room air. Bed locked in lowest position, side rails x 1. PMH: cervical cancer 2020, bipolar d/o, PTSD, panic attacks Meds: Denies Allergies: PCN, iodine Sx: hysterectomy s/p radiation therapy
[2022-04-22] MEDS ORDERED: KETOROLAC 30 MG/ML VIAL IVP ONE (08:35)
[2022-04-22 08:58] LABS: BASOPHILS % (AUTO) 0.5 % (0.0-2.0); EOSINOPHILS # (AUTO) 0.2 K/uL (0-0.4); HEMATOCRIT 42.7 % (36-48); HEMOGLOBIN 14.3 g/dL (12.0-16.0); LYMPHOCYTES # (AUTO) 1.6 K/uL (2.5-16.5); LYMPHOCYTES % (AUTO) 29.1 % (20.5-51.1); MEAN CORPUSCULAR HEMOGLOBIN 29 pg (27-31); MEAN CORPUSCULAR HGB CONC 33 g/dL (33-37); MEAN CORPUSCULAR VOLUME 85.7 fL (80-94); MONOCYTES # (AUTO) 0.4 K/uL (0.8-1.0); MONOCYTES % (AUTO) 7.5 % (1.7-9.3); NEUTROPHILS # (AUTO) 3.2 K/uL (1.8-7.7); NEUTROPHILS % (AUTO) 58.9 % (42.2-75.2); PLATELET COUNT (AUTO) 235 K/uL (140-450); RED BLOOD CELL COUNT(AUTO) 4.98 MIL/uL (4.20-5.40); RED CELL DISTRIBUTION WIDTH 14.5 % (11.6-13.7); WHITE BLOOD COUNT (AUTO) 5.4 K/uL (4.8-10.8)
[2022-04-22 09:11] LABS: ALBUMIN 3.5 g/dL (3.4-5.0); ASPARTATE AMINOTRANSFERASE 26 U/L (15-37); CARBON DIOXIDE 24.8 mmol/L (21-32); CHLORIDE 105 mmol/L (98-107); CREATININE 0.7 mg/dL (0.6-1.3); GFR ARICAN-AMERICAN 121 mL/min (>90); GLUCOSE 111 mg/dL (74-106); POTASSIUM 3.8 mmol/L (3.5-5.1); SODIUM SERUM 141 mmol/L (136-145); TOTAL BILIRUBIN 0.5 mg/dL (0.0-1.0); UREA NITROGEN, BLOOD 12 mg/dL (7-18)
--- NOTE | 2022-04-22 09:35 | NUR ---
Pt with + relief to pain; 3/10 at this time. All needs met. VSS; respirations even/unlabored.
[2022-04-22] MEDS ORDERED: ACET-8386 PO (10:29)
[2022-04-22 10:35] VITALS: BP 112/76
--- NOTE | 2022-04-22 10:35 | NUR ---
Patient discharged with v/s stable. Written and verbal after care instructions for Chest Wall Pain given and explained. Patient alert, oriented and verbalized understanding of instructions. Ambulatory with steady gait. All questions addressed prior to discharge. ID band removed. Patient advised to follow up with PMD. Rx of Hydrocodone/acetaminophen given. Patient educated on indication of medication including possible reaction and side effects. Opportunity to ask questions provided and answered. Work note, copies of RAD, EKG, blood work handed to patient.
== END 2022-04-22 10:35 | disposition home or self-care (01) ==
LOC: MED 08:05
DX: R07.89 Other chest pain (principal); F12.90 Cannabis use, unspecified, uncomplicated; Z88.0 Allergy status to penicillin; Z88.8 Allergy status to other drugs, medicaments and biological substances; Z98.890 Other specified postprocedural states; Z79.899 Other long term (current) drug therapy; Z90.710 Acquired absence of both cervix and uterus
CPT/HCPCS: 36415; 71045; 80053; 84484; 85025; 93005; 96372; 99285; J1885; Q0092; 96374

== ENCOUNTER 2022-07-24 00:28 | Emergency (ER) | payer OTHER ==
[~2022-07-24] VITALS: Ht 165.1 cm; Wt 89.8 kg
[~2022-07-24 00:28] MED LIST changes: +ACET-8905 PO
[2022-07-24 00:40] VITALS: BP 131/95
--- NOTE | 2022-07-24 00:44 | NUR ---
TO LOBBY A/W BED AMBULATORY
[2022-07-24] MEDS ORDERED: FLUORESCEIN OPTH STRIP 1 MG OP ONE (01:15)
--- NOTE | 2022-07-24 01:41 | NUR ---
PT CALLED FROM INSIDE LOBBY AND OUTSIDE, NO REPSONSE
--- NOTE | 2022-07-24 01:42 | NUR ---
PATIENT LEFT WITHOUT BEING SEEN BY DR. MARAVILLA. NO FURTHER CARE PROVIDED FOR PATIENT.
--- NOTE | 2022-07-24 01:42 | NUR ---
PT CALLED ON PERSONAL PHONE, NO ANSWER
== END 2022-07-24 01:41 | disposition left against medical advice (07) ==
LOC: MED 00:28
DX: H57.13 Ocular pain, bilateral (principal); Z53.21 Procedure and treatment not carried out due to patient leaving prior to being seen by health care provider